=== PATIENT | female | born 1935 | race Caucasian/White ===

== ENCOUNTER 2016-12-22 12:52 | Inpatient (IN) ==
--- NOTE | 2016-12-22 13:23 | Emergency Department Note ---
General Adult HPI - General Chief complaint: Fever Stated complaint: Fever Time Seen by Provider: 12/22/16 13:18 Mode of arrival: EMS - History of Present Illness HPI Narrative: This patient was seen last night for fever and weakness and UTI. She was given IV Levaquin. Today she is really no better she's weak decreased level of responsiveness has a fever still. She lives in an adult family home with no nursing care. - Related Data Home Medications Medication Instructions Recorded Confirmed Cephalexin [Keflex] 500 mg PO DAILY 07/02/16 07/02/16 Cholecalciferol (Vitamin D3) 1 ml MC DAILY 07/02/16 07/02/16 [Vitamin D3] Citalopram [Celexa] 20 mg PO DAILY 07/02/16 07/02/16 Diclofenac Sodium [Voltaren] 100 gm TP BID 07/02/16 07/02/16 Divalproex Sodium [Depakote] 125 mg PO DAILY 07/02/16 07/02/16 Docusate Sodium [Colace] 100 mg PO BID 07/02/16 07/02/16 Erythromycin Ophth Oint [Ilotycin 1 ribbon OU BID 07/02/16 07/02/16 Ophth Oint] Metoprolol Tartrate [Lopressor] 25 mg PO DAILY 07/02/16 07/02/16 Olmesartan Medoxomil [Benicar] 10 mg PO DAILY 07/02/16 07/02/16 Potassium Chloride [Kdur] 10 meq PO DAILY 07/02/16 07/02/16 Simethicone [Gas Relief] 125 mg PO DAILY 07/02/16 07/02/16 Previous Rx's Medication Instructions Recorded Levofloxacin [Levaquin] 250 mg PO 1HRACB #7 tablet 12/21/16 Allergies Allergy/AdvReac Type Severity Reaction Status Date / Time Amoxicillin [AMOXICILLIN] Allergy Intermediate ITCH Verified 12/22/16 12:56 Sulfa (Sulfonamide Allergy Intermediate RASH Verified 12/22/16 12:56 Antibiotics) [SULFA (SULFONAMIDE ANTIBIOTICS)] ciprofloxacin [From CIPRO] Allergy Mild ITCH Verified 12/22/16 12:56 penicillin G [PENICILLIN G] Allergy Unknown UNK Verified 12/22/16 12:56 Review of Systems Constitutional: Reports: fever. Denies: chills Eyes: Denies: eye pain ENT ED: Denies: ear pain Cardiovascular: Denies: chest pain Respiratory: Reports: cough. Denies: dyspnea Gastrointestinal: Reports: nausea. Denies: abdominal pain Genitourinary: Denies: urgency Musculoskeletal: Denies: back pain Integumentary: Reports: rash Past Medical History - Past Medical History Medical history: Reports: dementia, diabetes, hypertension - Social History Alcohol use: Reports: None Drug use: Reports: none Physical Exam - General Limitations: altered mental status General appearance: lethargic - Head Head exam: atraumatic - Eye Eye exam: Present: normal appearance - ENT ENT exam: mucous membranes dry - Neck Neck exam: Present: normal inspection - Chest Chest inspection: Present: normal inspection - Respiratory Respiratory exam: Present: normal lung sounds bilaterally - Cardiovascular Cardiovascular exam: Present: regular rate, normal rhythm, normal heart sounds - Abdominal Exam Abdominal exam: Present: soft. Absent: distention, tenderness - Neurological Exam Neurological exam: Present: alert - Psychiatric Psychiatric exam: Present: normal affect - Skin Skin exam: Present: warm, dry Course Vital Signs Temperature 101.6 F H 12/22/16 12:52 Pulse Rate 81 12/22/16 12:52 Respiratory Rate 16 12/22/16 12:52 Blood Pressure 188/83 12/22/16 12:52 Pulse Oximetry (%) 97 12/22/16 12:52 Temperature 101.6 F H 12/22/16 12:52 Pulse Rate 83 12/22/16 14:00 Respiratory Rate 16 12/22/16 12:52 Blood Pressure 186/74 12/22/16 14:00 Pulse Oximetry (%) 94 12/22/16 14:00 Medical Decision Making - [facility] Narrative Medical decision making narrative: This patient was diagnosed with a UTI last night and is failed outpatient treatment. She is very weak today has a fever and needs to be admitted. Hospitalist service will admit her to the hospital. - Lab Data Lab results reviewed: Yes I reviewed the patient's lab results. Result diagrams: 12/22/16 13:35 12/22/16 13:35 Lab Results 12/22/16 12/22/16 12/22/16 Range/Units 13:35 13:35 13:35 WBC 8.6 (4.5-11.0) K/mcL RBC 4.44 (4.00-5.20) M/mcL Hgb 13.5 (12.0-15.0) g/dL Hct 38.6 (36.0-48.0) % MCV 86.9 (80.0-100.0) fL MCH 30.3 (26.0-34.0) pg MCHC 34.9 (31.0-36.0) g/dL RDW 12.7 (11.5-14.5) % Plt Count 202 (140-440) K/mcL MPV 8.3 (7.4-10.4) fL Gran % 59.9 (38.0-78.0) % Lymph % (Auto) 25.7 (15.5-49.0) % [place] % (Auto) 13.7 H (1.0-9.0) % Eos % (Auto) 0.4 (0.0-7.0) % Baso % (Auto) 0.3 (0.0-2.0) % Gran # 5.2 (1.8-8.0) K/mcL Lymph # 2.2 (1.5-4.8) K/mcL [place] # 1.2 H (0.1-0.9) K/mcL Eos # 0 (0.0-0.7) K/mcL Baso # 0 (0.0-0.3) K/mcL VBG Lactic Acid 2.9 H (0.5-2.2) mmol/L Sodium 139 (133-145) mmol/L Potassium 3.6 (3.3-5.1) mmol/L Chloride 97 (96-108) mmol/L Carbon Dioxide 24 (22-30) mmol/L Anion Gap 18.0 H (8-16) BUN 17 (8-23) mg/dl Creatinine 1.2 H (0.6-1.1) mg/dl GFR Calculation 42 Glucose 152 H (70-105) mg/dL Calcium 9.6 (8.6-10.4) mg/dl Total Bilirubin 0.3 (0.0-1.0) mg/dL AST 21 (0-37) U/l ALT 20 (0-40) U/l Alkaline Phosphatase 63 (39-117) U/L Total Protein 7.1 (5.9-8.4) gm/dL Albumin 4.0 (3.2-5.2) gm/dL Globulin 3.1 (2.2-3.7) gm/dL Albumin/Globulin Ratio 1.3 (1.0-2.3) Disposition Clinical Impression: Urinary tract infection Disposition: Xfer As Inpt ([facility]) Condition: Fair Referrals: Leyla Borjas ARNP [Primary Care Provider] - Time of Disposition: 15:11
[2016-12-22] MEDS ORDERED: 0.9 % SODIUM CHLORIDE 1,000 ML IV ONE (13:24)
[2016-12-22 14:27] LABS: Basophils # (Auto) 0 K/mcL (0.0-0.3); Basophils % (Auto) 0.3 % (0.0-2.0); Eosinophils # (Auto) 0 K/mcL (0.0-0.7); Eosinophils % (Auto) 0.4 % (0.0-7.0); Granulocytes % (Auto) 59.9 % (38.0-78.0); Lymphocytes # (Auto) 2.2 K/mcL (1.5-4.8); Lymphocytes % (Auto) 25.7 % (15.5-49.0); Mean Cell Volume 86.9 fL (80.0-100.0); Mean Corpuscular HGB Conc 34.9 g/dL (31.0-36.0); Mean Corpuscular Hemoglobin 30.3 pg (26.0-34.0); Monocytes # (Auto) 1.2 K/mcL (0.1-0.9); Monocytes % (Auto) 13.7 % (1.0-9.0); Platelet Count 202 K/mcL (140-440); RBC 4.44 M/mcL (4.00-5.20); Red Cell Distribution Width 12.7 % (11.5-14.5)
[2016-12-22 14:48] LABS: ALT/SGPT 20 U/l (0-40); Albumin/Globulin Ratio 1.3 (1.0-2.3); Alkaline Phosphatase 63 U/L (39-117); Blood Urea Nitrogen 17 mg/dl (8-23)
[2016-12-22] MEDS ORDERED: ACETAMINOPHEN 650 MG SUPP.RECT PR ONE (15:01)
[2016-12-22] MEDS ORDERED: cefTRIAXone 2 GM in DEXTROSE 5% IN WATER 50 ML IV ONE (15:10)
[2016-12-22] MEDS ORDERED: LORazepam 2 MG/ML VIAL IV ONE (16:41)
[2016-12-22] MEDS ORDERED: LORazepam 2 MG/ML VIAL ONE (16:44)
--- NOTE | 2016-12-22 17:13 | Internal Med History&Physical ---
Medical - H&P: [facility] Patient information: Note initiated : 12/22/16 at 5:06 pm Service Date, if different from initiated Date: [] Patient: Harper Michael 81 y/o F admitted on for Fever. Chief Complaint: [] History of present illness: Ms. Michael is a 81 year old female with h/o HTN, DM, Severe Dementia, presents to the hospital with complaints of fever, and poor oral intake x 2 days. The patient had presented yesterday to the Er, was treated with IV fluids and levaquin, the patient did not meet criteria for admission at that time. The patient went home and was not able to tolerate po well, she had spiked fever, and also had some runny nose, watery eyes and cough. The patient flu was negative as per family at the last ER visit. The patient with fever of 103 as per family, with chills and increased secretions which the patient was not able to clear, they did not start the levofloxacin again. The patient does not communicate well at baseline, has been aspirating at baseline and takes nector thick liquids, the patient only expresses her self in terms of agitation for stress. Her daughters were present at bedside who provided all the history I reviewed the code status with the patient, they wanted the patient to be comfort care, only IV antibiotics for now to treat the infection, aware that she has advanced dementia, with dysphagia and high risk of aspiration. No aggressive treatments no cpr ROS unobtainable: due to mental status Medical - H&P: PMH Medical history: DM,HTN, DEMENTIA as per family/ med list Surgical history: unable to obtain. Pertinent family history: unable. Social history: lives in adult family home. non smoker, no etoh. Medical - H&P: Meds Home Medications Medication Instructions Recorded Confirmed Type Cephalexin [Keflex] 500 mg PO DAILY 07/02/16 07/02/16 History Cholecalciferol (Vitamin D3) 1 ml MC DAILY 07/02/16 07/02/16 History [Vitamin D3] Citalopram [Celexa] 20 mg PO DAILY 07/02/16 07/02/16 History Diclofenac Sodium [Voltaren] 100 gm TP BID 07/02/16 07/02/16 History Divalproex Sodium [Depakote] 125 mg PO DAILY 07/02/16 07/02/16 History Docusate Sodium [Colace] 100 mg PO BID 07/02/16 07/02/16 History Erythromycin Ophth Oint [Ilotycin 1 ribbon OU BID 07/02/16 07/02/16 History Ophth Oint] Metoprolol Tartrate [Lopressor] 25 mg PO DAILY 07/02/16 07/02/16 History Olmesartan Medoxomil [Benicar] 10 mg PO DAILY 07/02/16 07/02/16 History Potassium Chloride [Kdur] 10 meq PO DAILY 07/02/16 07/02/16 History Simethicone [Gas Relief] 125 mg PO DAILY 07/02/16 07/02/16 History Allergies Allergy/AdvReac Type Severity Reaction Status Date / Time Amoxicillin [AMOXICILLIN] Allergy Intermediate ITCH Verified 12/22/16 12:56 Sulfa (Sulfonamide Allergy Intermediate RASH Verified 12/22/16 12:56 Antibiotics) [SULFA (SULFONAMIDE ANTIBIOTICS)] ciprofloxacin [From CIPRO] Allergy Mild ITCH Verified 12/22/16 12:56 penicillin G [PENICILLIN G] Allergy Unknown UNK Verified 12/22/16 12:56 Medical - H&P: Exam - Constitutional Vitals: Temp Pulse Resp BP Pulse Ox 101.6 F H 82 16 126/108 91 12/22/16 12:52 12/22/16 16:31 12/22/16 12:52 12/22/16 16:31 12/22/16 16:31 General appearance: thin - Head Head exam: Present: atraumatic, normal inspection - Eye Eye exam: Absent: periorbital swelling, scleral icterus - ENT ENT exam: Present: mucous membranes dry - Neck Additional comments: flexed, supple - Respiratory Respiratory exam: Present: normal respiratory exam. Absent: accessory muscle use, stridor, wheezes - Cardiovascular Cardiovascular exam: Present: normal rate and rhythm, +S1, +S2 - GI/Abdominal GI/Abdominal exam: Present: normal bowel sounds, soft. Absent: rigid, tenderness - Extremities Exam Extremities exam: Present: normal capillary refill. Absent: pedal edema - Neurological Exam Neurological exam: Present: alert Additional comments: aoox0, drowsy does nto follow c ommands moving extremities - Psychiatric Psychiatric exam: Absent: agitated - Skin Skin exam: Present: dry, normal color, warm Medical - H&P: Reslt - Labs CBC & Chem 7: 12/22/16 13:35 12/22/16 13:35 Labs: Short CBC 12/22/16 Range/Units 13:35 WBC 8.6 (4.5-11.0) K/mcL Hgb 13.5 (12.0-15.0) g/dL Hct 38.6 (36.0-48.0) % Plt Count 202 (140-440) K/mcL BMP 12/22/16 13:35 Sodium 139 Potassium 3.6 Chloride 97 Carbon Dioxide 24 BUN 17 Creatinine 1.2 H Glucose 152 H Calcium 9.6 Liver Function 12/22/16 Range/Units 13:35 Total Bilirubin 0.3 (0.0-1.0) mg/dL AST 21 (0-37) U/l ALT 20 (0-40) U/l Alkaline Phosphatase 63 (39-117) U/L Albumin 4.0 (3.2-5.2) gm/dL Medical - H&P: A/P (1) Sepsis Current visit: Yes Status: Acute (2) Diabetes mellitus Current visit: Yes Status: Acute (3) Hypertension Current visit: Yes Status: Acute (4) Urinary tract infection Current visit: Yes Status: Acute (5) Dementia Current visit: No Status: Acute - Narrative A/P Narrative: Patient with sepsis, Maintaiing BP, source is Urine Get x ray chest, cxr y was negative IV rocephin for uti, pt was on oral keflex at home so chances of reaction is low. will follow cultures. Tamiflu given flu like symptoms, even if the flu test is negative, low sensitivity during high prevelance of the disease. DVT hep sq Diet puree, honey thick liquid, ST eval. Code DNR comfort care except antibiotics. Will hold diuretics for now, resume bp meds as bp improves. , Monitor glucose, hold metofrmin, sliding scale insulin. Prognosis, poor given severe dementia, dysphagi, which is not reversible.
[2016-12-22] MEDS ORDERED: ACETAMINOPHEN 160 MG/5 ML ORAL.SOL PO PRN (17:47)
[2016-12-22] MEDS ORDERED: DEXTROSE 50% 50 ML VIAL IV PRN (17:47)
[2016-12-22] MEDS ORDERED: IPRATROPIUM/ALBUTEROL 3 ML AMPUL.NEB NEB PRN (17:47)
[2016-12-22] MEDS ORDERED: ONDANSETRON 4 MG/2 ML VIAL IV PRN (17:47)
[2016-12-22] MEDS: 0.9 % SODIUM CHLORIDE 1,000 ML IV SCH (18:27)
[2016-12-22] MEDS: 0.9 % SODIUM CHLORIDE 10 ML SYRINGE IV SCH (20:23)
[2016-12-22] MEDS: FAMOTIDINE/PF 20 MG/2 ML VIAL IV SCH (20:38)
[2016-12-22] MEDS: INSULIN LISPRO 1 UNIT/0.01 ML UNIT SQ SCH (20:38)
[2016-12-22] MEDS ORDERED: FAMOTIDINE/PF 20 MG/2 ML VIAL IV ONE (20:45)
[2016-12-22] MEDS ORDERED: INSULIN LISPRO 1 UNIT/0.01 ML UNIT SQ ONE (20:46)
[2016-12-22] MEDS ORDERED: OSELTAMIVIR PHOSPHATE 75 MG CAPSULE PO SCH (21:00)
[2016-12-22] MEDS ORDERED: HEPARIN 5,000 UNIT/ML VIAL SQ SCH (21:00)
--- NOTE | 2016-12-22 21:22 | XRay Report ---
CLINICAL INFORMATION: Fever. Altered mental status. TECHNIQUE: AP upright chest x-ray COMPARISON: 12/21/2016, 07/02/2016 FINDINGS: No focal pulmonary parenchymal infiltrate or mass. No pneumonia. Heart size and vascularity are normal. No pulmonary edema. No pulmonary congestion. No acute abnormality. No interval change. IMPRESSION: Negative AP chest x-ray Interpreted and Authenticated by: Matty Becerril 12/22/16
[2016-12-22] MEDS ORDERED: LORazepam 2 MG/ML VIAL IV PRN (22:15)
[2016-12-23] MEDS: ACETAMINOPHEN 650 MG SUPP.RECT PR PRN ×2 (02:01→16:56)
[2016-12-23] MEDS ORDERED: ACETAMINOPHEN 650 MG SUPP.RECT ONE (02:12)
[2016-12-23] MEDS: 0.9 % SODIUM CHLORIDE 10 ML SYRINGE IV SCH ×3 (05:51→23:39)
[2016-12-23 06:44] LABS: ALT/SGPT 16 U/l (0-40); Albumin 3.6 gm/dL (3.2-5.2); Albumin/Globulin Ratio 1.4 (1.0-2.3); Alkaline Phosphatase 48 U/L (39-117); Bilirubin,Direct < 0.2 mg/dL (0.0-0.3); Blood Urea Nitrogen 19 mg/dl (8-23); Gamma Glutamyl Transpeptidase 16 U/L (5-36); Phosphorous 2.5 mg/dL (2.7-4.5)
[2016-12-23 06:50] LABS: Basophils # (Auto) 0 K/mcL (0.0-0.3); Basophils % (Auto) 0 % (0.0-2.0); Eosinophils # (Auto) 0 K/mcL (0.0-0.7); Eosinophils % (Auto) 0.5 % (0.0-7.0); Granulocytes % (Auto) 42.4 % (38.0-78.0); Lymphocytes # (Auto) 3.2 K/mcL (1.5-4.8); Lymphocytes % (Auto) 40.6 % (15.5-49.0); Mean Cell Volume 86.6 fL (80.0-100.0); Mean Corpuscular HGB Conc 36.1 g/dL (31.0-36.0); Mean Corpuscular Hemoglobin 31.3 pg (26.0-34.0); Monocytes # (Auto) 1.3 K/mcL (0.1-0.9); Monocytes % (Auto) 16.5 % (1.0-9.0); Platelet Count 171 K/mcL (140-440); RBC 3.58 M/mcL (4.00-5.20); Red Cell Distribution Width 12.7 % (11.5-14.5)
[2016-12-23] MEDS: INSULIN LISPRO 1 UNIT/0.01 ML UNIT SQ SCH ×4 (07:15→23:40)
[2016-12-23] MEDS: 0.9 % SODIUM CHLORIDE 1,000 ML IV SCH (09:01)
[2016-12-23] MEDS: cefTRIAXone 2 GM in DEXTROSE 5% IN WATER 50 ML IV SCH (10:36)
[2016-12-23] MEDS: FAMOTIDINE/PF 20 MG/2 ML VIAL IV SCH ×2 (10:37→23:39)
[2016-12-23] MEDS: OSELTAMIVIR PHOSPHATE 75 MG CAPSULE PO SCH ×2 (10:42→23:47)
[2016-12-23] MEDS ORDERED: MAGNESIUM SULFATE 2 GM/50 ML BAG IV ONE (11:26)
--- NOTE | 2016-12-23 11:29 | Internal Med Progress Note ---
Medical - PN: Subj Patient information: Note initiated : 12/23/16 at 11:27 am Service Date, if different from initiated Date: [] Patient: Harper Michael 81 y/o F admitted on 12/22/16 for Fever/UTI, Sepsis. Chief Complaint: [] Interval history: Patient seen examined, daugthers at bedside, ST at bed side patient was trying to eat some food, but was unable to swallow well, she has poor swallow reflex, and very high risk of aspiration. The family is aware of the poor prognosis Labs reviwed, Low mg to be replaced, lactate better, creat slightly worsened to 1.3 Discussed with the daugther need for hospice in the advanced dementia patient who is unable to tolerate po family will talk with case management to know their options. They are agreeable with the idea of hospice and understand that patient has poor prognosis. Pertinent ROS: unable. - Constitutional Vitals: Vital Signs Temp Pulse Resp BP Pulse Ox 97.8 F 68 16 133/75 96 12/23/16 08:00 12/23/16 08:00 12/23/16 08:00 12/23/16 08:00 12/23/16 08:00 Period Temp Pulse Resp BP Sys/White Pulse Ox Last 24 Hr 97.8 F-101.2 F 68-75 16-20 129-145/61-77 91-96 Intake and Output 12/22/16 12/23/16 12/23/16 21:59 05:59 13:59 Intake Total 1000 / 1050 0 / 0 1000 / 1000 Output Total Balance 1000 / 1050 0 / 0 999 / 999 Weight 120 lb Intake & Output: Intake & Output 12/22/16 12/23/16 12/23/16 21:59 05:59 13:59 Intake Total 1000 / 1050 0 / 0 1000 / 1000 Output Total Balance 1000 / 1050 0 / 0 999 / 999 Weight 120 lb Intake: IV 1000 / 1000 1000 / 1000 Sodium Chloride 0.9% 1, 1000 / 1000 1000 / 1000 000 ml @ 75 mls/hr IV . [id number] GORGE Rx#:[id number] Oral 0 / 0 Output: # of times incontinent of urine Exam: Constitutional; Afebrile, thin, malnourised Eyes- No icterus, No periorbital swelling Ears- Ext ear normal, hard of hearing, does not obey commands Neck- Midline trachea, supple Respiratory system: Air Entry equal on both sides,not use of accesory muscles of respiration. CVS- Rate rhythm regular, S1,S2 heard, no gallop, no rub. Abdomen- Soft nontender abdomen, no organomegaly, no tenderness, no guarding or rigidity, [employer]- AOOx0, non verbal for most part, moves extremities, but not to command. Medical - PN: Obj Da - Labs CBC & Chem 7: 12/23/16 04:55 12/23/16 04:55 Labs: Abnormal Lab Results 12/23/16 12/23/16 04:55 04:55 RBC 3.58 L Hgb 11.2 L Hct 31.0 L MCHC 36.1 H [place] % (Auto) 16.5 H [place]abella # 1.3 H Creatinine 1.3 H Glucose 112 H Phosphorus 2.5 L Magnesium 1.0 L Meds: Medications Acetaminophen (Tylenol) 325 mg PO Q4HP PRN PRN Reason: PAIN/FEVER > 101 Acetaminophen (Tylenol) 650 mg [place] Q4-6HP PRN PRN Reason: PAIN/FEVER > 101 Last Admin: 12/23/16 02:01 Dose: 650 mg Albuterol/Ipratropium (Duoneb) 3 ml NEB Q6HRT PRN PRN Reason: Shortness Of Breath Or Wheezing Dextrose (Dextrose 50%) 0 ml IV UD PRN PRN Reason: Hypoglycemia Diagnostic Test (Pha) (Accu-Chek) 1 each FS ACHS [facility] Last Admin: 12/23/16 07:06 Dose: 1 each Famotidine (Pepcid) 20 mg IV Q12 [facility] Last Admin: 12/23/16 10:37 Dose: 20 mg Sodium Chloride (Sodium Chloride 0.9%) 1,000 mls @ 75 mls/hr IV .[id number] [facility] Stop: 12/23/16 20:26 Last Admin: 12/23/16 09:01 Dose: 75 mls/hr Ceftriaxone Sodium 2 gm/ (Dextrose) 50 mls @ 100 mls/hr IV Q24H [facility] Last Admin: 12/23/16 10:36 Dose: 100 mls/hr Magnesium Sulfate (Magnesium Sulfate) 2 gm in 50 mls @ 50 mls/hr IV ONCE ONE Stop: 12/23/16 12:25 Insulin Human Lispro (Humalog) 0 unit SQ ACHS [facility] PRN Reason: Protocol Last Admin: 12/23/16 07:15 Dose: Not Given Lorazepam (Ativan) 0.5 mg IV Q4-6HP PRN PRN Reason: Anxiety/Sedation/shakes. Ondansetron HCl (Zofran) 4 mg IV Q6HP PRN PRN Reason: Nausea And Vomiting Oseltamivir Phosphate (Tamiflu) 75 mg PO BID [facility] Stop: 12/27/16 09:01 Last Admin: 12/23/16 10:42 Dose: Not Given Sodium Chloride (Saline Flush) 10 ml IV Q8 [facility] Last Admin: 12/23/16 05:51 Dose: Not Given Medical - PN: A/P - Time Spent With Patient Total time spent is greater than 50% in coordination of care (as documented) at patient's floor/unit and/or counseling patient: (1) Sepsis Status: Acute Current Visit: Yes (2) Diabetes mellitus Status: Acute Current Visit: Yes (3) Hypertension Status: Acute Current Visit: Yes (4) Urinary tract infection Status: Acute Current Visit: Yes (5) Dementia Status: Acute Current Visit: No (6) Oropharyngeal dysphagia Status: Acute Current Visit: Yes (7) Hypomagnesemia Status: Acute Current Visit: Yes - Narrative A/P Narrative: This is a old think frail lady with advanced dementia, dysphagia, and failure to thrive She is not a candidate for aggressive treatment, family agrees with same, given that she is not able to tolerate po well, hospice/ palliative care offered and accepted. UTI- continue to treat with IV Rocephin for now. Nasal congestion- treat with ipratropium nasal spray. Comfort care measures only except for IV antibiotics, no hep for dvt as per family. avoid unnecessary lab draws. will replace Mg today likely from poor oral intake, DM - Glucose at goal Medical - PN: Qual - Stroke Symptom Onset Unknown: No - VTE Deep Vein Thrombosis/Pulmonary Embolism Present on Admission: No
[2016-12-23] MEDS: IPRATROPIUM 0.03% NASAL SPRAY BOTTLE 30ML NAS SCH ×2 (16:57→23:46)
[2016-12-23] MEDS: hydrALAZINE 20 MG/ML VIAL IV ONE ×2 (20:41→20:45)
[2016-12-23] MEDS ORDERED: hydrALAZINE 20 MG/ML VIAL ONE (20:46)
[2016-12-23] MEDS ORDERED: LABETALOL 5 MG/ML ML IV ONE (21:31)
[2016-12-24] MEDS ORDERED: LABETALOL 5 MG/ML ML IV ONE (02:00)
[2016-12-24] MEDS: 0.9 % SODIUM CHLORIDE 10 ML SYRINGE IV SCH ×3 (03:00→21:38)
[2016-12-24] MEDS: cefTRIAXone 2 GM in DEXTROSE 5% IN WATER 50 ML IV SCH (08:23)
[2016-12-24] MEDS: OSELTAMIVIR PHOSPHATE 75 MG CAPSULE PO SCH (09:52)
[2016-12-24] MEDS: INSULIN LISPRO 1 UNIT/0.01 ML UNIT SQ SCH ×2 (09:52→15:05)
[2016-12-24] MEDS ORDERED: LABETALOL HCL 20 MG/4 ML SYRINGE IV ONE (10:00)
[2016-12-24] MEDS ORDERED: cloNIDine TTS 1 1 PATCH PATCH TD SCH ×2 (10:00→12:15)
[2016-12-24] MEDS: FAMOTIDINE/PF 20 MG/2 ML VIAL IV SCH ×2 (10:50→21:37)
--- NOTE | 2016-12-24 13:12 | Internal Med Progress Note ---
Medical - PN: Subj Patient information: Note initiated : 12/24/16 at 1:09 pm Service Date, if different from initiated Date: [] Patient: Harper Michael 81 y/o F admitted on 12/22/16 for Fever/UTI, Sepsis. Chief Complaint: [] Interval history: The patient seen this aM overnight issues noted pt had few readings of high bp at night, needing IV labetalol Patient home medications cannot be resumed given that she has not been able to tolerate any po diet. The patient family wants bp to be better controlled. I had another discussing with the family today, clarifying the goal of treatment. They are wanting comfort care for the patient, understand that she may not be able to eat again and the prognosis is grim. Keeping the patient comfortable is the priority. They are ok with present dose of IV antibiotics. Plan is to go to rehab facility/ SNF for palliative treatment. Pertinent ROS: unable due to mental condition. - Constitutional Vitals: Vital Signs Temp Pulse Resp BP Pulse Ox 99.5 F 74 18 167/73 97 12/24/16 11:00 12/24/16 11:00 12/24/16 11:00 12/24/16 11:00 12/24/16 11:00 Period Temp Pulse Resp BP Sys/White Pulse Ox Last 24 Hr 98.6 F-100.3 F 73-84 12-18 159-209/51-85 93-98 Intake and Output 12/23/16 12/24/16 12/24/16 21:59 05:59 13:59 Output Total 2 / 2 2 / 2 Balance -2 / -2 -2 / -2 Weight 121 lb 8 oz Intake & Output: Intake & Output 12/23/16 12/24/16 12/24/16 21:59 05:59 13:59 Output Total 2 / 2 2 / 2 Balance -2 / -2 -2 / -2 Weight 121 lb 8 oz Output: # of times incontinent of 2 / 2 2 / 2 urine Exam: Constitutional; Afebrile, Eyes- No icterus,No periorbital swelling Ears- Ext ear normal, unable to comphrend much. Neck- Midline trachea, supple Respiratory system: Air Entry equal on both sides, No crackles or wheezing, no rhonchi. CVS- Rate rhythm regular, S1,S2 heard, no gallop, no rub. Abdomen- Soft nontender abdomen, no organomegaly, no tenderness, no guarding or rigidity, [employer]- AOOx0, non verbal due to severe dementia Medical - PN: Obj Da - Labs CBC & Chem 7: 12/23/16 04:55 12/23/16 04:55 Labs: Abnormal Lab Results 12/23/16 12/23/16 04:55 04:55 RBC 3.58 L Hgb 11.2 L Hct 31.0 L MCHC 36.1 H [place] % (Auto) 16.5 H [place] # 1.3 H Creatinine 1.3 H Glucose 112 H Phosphorus 2.5 L Magnesium 1.0 L Meds: Medications Acetaminophen (Tylenol) 325 mg PO Q4HP PRN PRN Reason: PAIN/FEVER > 101 Acetaminophen (Tylenol) 650 mg [place] Q6HP [facility] Albuterol/Ipratropium (Duoneb) 3 ml NEB Q6HRT PRN PRN Reason: Shortness Of Breath Or Wheezing Clonidine HCl (Catapres Tts 1) 1 patch TD WEEKLY [facility] Dextrose (Dextrose 50%) 0 ml IV UD PRN PRN Reason: Hypoglycemia Diagnostic Test (Pha) (Accu-Chek) 1 each FS ACHS [facility] Last Admin: 12/24/16 10:50 Dose: 1 each Famotidine (Pepcid) 20 mg IV Q12 [facility] Last Admin: 12/24/16 10:50 Dose: 20 mg Ceftriaxone Sodium 2 gm/ (Dextrose) 50 mls @ 100 mls/hr IV Q24H [facility] Last Admin: 12/24/16 08:23 Dose: 100 mls/hr Insulin Human Lispro (Humalog) 0 unit SQ ACHS [facility] PRN Reason: Protocol Last Admin: 12/24/16 09:52 Dose: Not Given Ipratropium [place] (Atrovent 0.3% Nasal [place]) 2 spray TANIA BID [facility] Last Admin: 12/23/16 23:46 Dose: Not Given Lorazepam (Ativan) 0.5 mg IV Q4-6HP PRN PRN Reason: Anxiety/Sedation/shakes. Ondansetron HCl (Zofran) 4 mg IV Q6HP PRN PRN Reason: Nausea And Vomiting Sodium Chloride (Saline Flush) 10 ml IV Q8 [facility] Last Admin: 12/24/16 03:00 Dose: 10 ml Medical - PN: A/P - Time Spent With Patient Total time spent is greater than 50% in coordination of care (as documented) at patient's floor/unit and/or counseling patient: (1) Sepsis Status: Acute Current Visit: Yes (2) Diabetes mellitus Status: Acute Current Visit: Yes (3) Hypertension Status: Acute Current Visit: Yes (4) Urinary tract infection Status: Acute Current Visit: Yes (5) Dementia Status: Acute Current Visit: No (6) Oropharyngeal dysphagia Status: Acute Current Visit: Yes (7) Hypomagnesemia Status: Acute Current Visit: Yes - Narrative A/P Narrative: Patient is stable, but not improving OK to feed her despite being NPO for palliative reasons, Family aware that this will incrase risk of aspiration, but feeding is now for quality of life, no meaningful calories are consumed. may be a bite or two a day. Patient will need palliative care going forward, given her severe oropharyngeal dysphagia and dementia, family in agreement. For her UTI she will continue IV rocephin while she is here, and may continue at [place] for total of 5-7 days. For her HTN, will start her on a clonidine patch to help control bp . Labetalol prn for now. Tylenol pr for pain control. No dvt prophylaxis, given palliative are diet should be npo, but ok to use puree food given patient is palliative/ comfort care Medical - PN: Qual - Stroke Symptom Onset Unknown: No - VTE Deep Vein Thrombosis/Pulmonary Embolism Present on Admission: No
[2016-12-24] MEDS ORDERED: ACETAMINOPHEN 650 MG SUPP.RECT PR SCH (13:15)
[2016-12-24] MEDS: IPRATROPIUM 0.03% NASAL SPRAY BOTTLE 30ML NAS SCH (18:24)
[2016-12-25] MEDS: IPRATROPIUM 0.03% NASAL SPRAY BOTTLE 30ML NAS SCH ×2 (00:23→08:12)
[2016-12-25] MEDS: 0.9 % SODIUM CHLORIDE 10 ML SYRINGE IV SCH (06:45)
[2016-12-25] MEDS: FAMOTIDINE/PF 20 MG/2 ML VIAL IV SCH (08:12)
[2016-12-25] MEDS: cefTRIAXone 2 GM in DEXTROSE 5% IN WATER 50 ML IV SCH (08:12)
--- NOTE | 2016-12-25 09:39 | Discharge Summary ---
Medical - DS: Prov Patient information: Note initiated : 12/25/16 at 9:35 am Service Date, if different from initiated Date: [] Patient: Harper Michael 81 y/o F admitted on 12/22/16 for Fever/UTI, Sepsis. Chief Complaint: [] Date of admission: 12/22/16 17:35 Discharge date: 12/25/16 Primary care physician: [f_Reg Prim Care Provider] Medical - DS: Meds - Discharge Medications Prescriptions: LORazepam [Lorazepam Intensol] 2 mg PO Q4H PRN 7 Days PRN Reason: Anxiety cefTRIAXone [Rocephin] 2 gm IV Q24H #4 vial cloNIDine TTS 1 [Catapres Tts 1] 1 patch TD WEEKLY #14 patch fentaNYL [Fentanyl] 25 mcg TD Q72 7 Days morphine 10 mg PO Q2HP PRN 7 Days PRN Reason: Anxiety Active and Home Medications: Home Medications Acetaminophen [Children's Pain-Fever] 160 mg PO Q4HP PRN 12/22/16 [History Confirmed 12/22/16 Last Taken Unknown] Bisacodyl [Dulcolax] 5 mg PO DAILYP PRN 12/22/16 [History Confirmed 12/22/16 Last Taken Unknown] Cetirizine [Zyrtec] 10 mg PO DAILY 12/22/16 [History Confirmed 12/22/16 Last Taken Unknown] Divalproex [Depakote Sprinkles] 125 mg PO DAILY 12/22/16 [History Confirmed 04/02 Last Taken Unknown] Docusate Sodium [Dulcolax Stool Softener] 100 mg PO BID 12/22/16 [History Confirmed 12/22/16 Last Taken Unknown] Simethicone [Gas-X] 125 mg PO DAILY 12/22/16 [History Confirmed 12/22/16 Last Taken Unknown] Sodium Chloride/Aloe Vera [Ruskin Saline Nasal Gel] 14.1 gm NS BID 12/22/16 [ History Confirmed 12/22/16 Last Taken Unknown] guaiFENesin [Siltussin SA] 100 mg PO DAILYP PRN 12/22/16 [History Confirmed 04/02 Last Taken Unknown] LORazepam [Lorazepam Intensol] 2 mg PO Q4H PRN 7 Days 12/25/16 [Rx Last Taken Unknown] cefTRIAXone [Rocephin] 2 gm IV Q24H #4 vial 12/25/16 [Rx Last Taken Unknown] cloNIDine TTS 1 [Catapres Tts 1] 1 patch TD WEEKLY #14 patch 12/25/16 [Rx Last Taken Unknown] fentaNYL [Fentanyl] 25 mcg TD Q72 7 Days 12/25/16 [Rx Last Taken Unknown] morphine 10 mg PO Q2HP PRN 7 Days 12/25/16 [Rx Last Taken Unknown] Medical - DS: Hosp Hospital course: DISCHARGE DIAGNOSIS * Severe sepsis secondary to complicated UTI-on Rocephin * Complicated UTI * Severe dysphagia leading to recurrent aspiration. family aware of high risk subsequent aspiration episode. * hypertension * DM type II * Dementia BRIEF HOSPITAL COURSE Ms. Michael is a 81 year old female with h/o HTN, DM, Severe Dementia, presents to the hospital with complaints of fever, and poor oral intake x 2 days. The patient had presented yesterday to the Er, was treated with IV fluids and levaquin, the patient did not meet criteria for admission at that time. The patient went home and was not able to tolerate po well, she had spiked fever, and also had some runny nose, watery eyes and cough. The patient flu was negative as per family at the last ER visit. The patient with fever of 103 as per family, with chills and increased secretions which the patient was not able to clear, they did not start the levofloxacin again. The patient does not communicate well at baseline, has been aspirating at baseline and takes nector thick liquids, the patient only expresses her self in terms of agitation for stress. patient was started on antibiotics along with continued comfort measures as per family. All oral medications were discontinued. she was on clonidine patch to maintain blood pressures in line with family wishes to avoid oral medications in light of aspiration. She is being discharged on comfort care with continued antibiotics to SNF. Hospice was consulted and will take over future care on discharge. Discharge diagnosis: complicated UTI' - Time Spent with Patient Total time spent providing and/or coordinating discharge services: Greater than 30 minutes Medical - DS: Exam - Constitutional Vitals: Vital Signs Temp Pulse Pulse Resp BP BP Pulse Ox 12/25/16 07:54 97.1 F L 70 16 165/70 94 12/25/16 07:47 56 L 93 12/24/16 20:00 99.5 F 74 16 194/74 94 12/24/16 11:00 99.5 F 74 18 167/73 97 Intake and Output 12/24/16 12/25/16 12/25/16 21:59 05:59 13:59 Intake Total 0 / 0 50 / 50 Output Total Balance -1 / -1 - 49 / 49 Intake: IV 50 / 50 Dextrose 5% in Water 50 50 / 50 ml @ 100 mls/hr IV Q24H GORGE with Rocephin 2 gm Rx #:[id number] Oral 0 / 0 Output: # of times incontinent of urine Other: Weight 121 lb General appearance: no acute distress Medical - DS: A/P - Patient/Caregiver Discharge Instructions Activity: increase activity as tolerated Diet: Regular Diet (As per comfort despite aspiration risk) Additional Instructions: Follow-up PCP in 5 days continue comfort care Antibiotics for additional 3 days hospice for pain management Continue aggressive bowel regimen to prevent constipation Continue fall precautions high risk aspiration All meals on chair sitting upright at 90 degrees to prevent aspiration Continue diet and activity as tolerated and as per comfort Please review medication list with patient prior to discharge Please schedule follow-up with PCP/Providers prior to discharge and provide printouts Portions of this chart may have been created with [employer] voice recognition software. Occasional wrong-word or ?sound-like? substitutions may have occurred due to the inherent limitations of voice recognition software. Please read the chart carefully and recognize, using context, where the substitutions have occurred. CC- PCP Prescriptions: LORazepam [Lorazepam Intensol] 2 mg PO Q4H PRN 7 Days PRN Reason: Anxiety cefTRIAXone [Rocephin] 2 gm IV Q24H #4 vial cloNIDine TTS 1 [Catapres Tts 1] 1 patch TD WEEKLY #14 patch fentaNYL [Fentanyl] 25 mcg TD Q72 7 Days morphine 10 mg PO Q2HP PRN 7 Days PRN Reason: Anxiety - Follow up Plan Follow up with: Leyla Borjas ARNP [Primary Care Provider] - Disposition: Xfer SNF Prognosis: Serious Rehab Potential: Critical I certify that the patient requires SNF services: Yes Overall status at discharge: patient is not back to baseline Medical - DS: Qual - VTE Deep Vein Thrombosis/Pulmonary Embolism Present on Admission: No
== END 2016-12-25 13:30 | DRG 872 ==
LOC: ED 12:52 → MEDSUR 17:35
PROVIDERS: ADMIT Internal Medicine; ATTEND Internal Medicine